=== PATIENT | male | born 1965 | race Two or more races ===

== ENCOUNTER → 2020-11-11 | Outpatient (CLI) | payer OTHER ==
[2015-02-15 11:30] VITALS: BP 136/82
[~2020-11-11] MED LIST: LOSA100T14 PO; MULT1TAB50 PO; OXYC1TAB15 PO
--- NOTE | 2020-11-11 11:49 | KCIC ---
EXAM: CT coronary artery calcium screening HISTORY: Hyperlipidemia. TECHNIQUE: Computed tomographic images of the chest were obtained without contrast. Multiplanar refor matting was performed. *One or more of the following individualized dose reduction techniques were utilized for this examina tion: 1. Automated exposure control. 2. Adjustment of the mA and/or kV according to patient size. 3. Use of iterative reconstruction technique. COMPARISON: None. FINDINGS: No incidental findings. Coronary artery calcium score: Left main artery - 0 Left anterior descending - 0 Left circumflex - 0 Right coronary artery - 0 TOTAL = 0 Coronary vascular calcium is not detected with this exam. This does not absolutely rule out the prese nce of atherosclerotic plaque, including unstable plaque, but does imply a very low likelihood of sig nificant luminal obstruction. A negative test may be consistent with a low risk of cardiovascular event in the next 2 to 5 years. IMPRESSION: Calcium score of 0. Recommendations: Healthy lifestyle choices including eating appropriately and exercise are encouraged. Additional supporting information concerning the findings and recommendation contained within this report can be found in the consensus statements on coronary vascular calcium published by the [place] [employer] and [place] [employer] 5 Conference (Circulation 1996 ; 94: 0386-3418; J Am Angi Cardiol 2000; 36: 326-340 and Circulation 2000; 101: 111-116 Electronically signed by: Luma Moise MD (11/11/2020 11:47 AM) [id number]
== END ==
LOC: KCIC CT 08:37
PROVIDERS: ATTEND Family Medicine
DX: Z13.6 Encounter for screening for cardiovascular disorders (principal); E78.2 Mixed hyperlipidemia
CPT/HCPCS: 75571

== ENCOUNTER 2021-06-15 11:32 | Emergency (ER) | payer BC, OTHER ==
[~2021-06-15] VITALS: Ht 165.1 cm; Wt 81.2 kg
[2021-06-15 12:16] LABS: BASO # 0.1 x10^3/uL (0.0-0.2); BASO % 1 % (0-3); EOS % 0 % (0-3); HEMATOCRIT 45.5 % (39.0-53.0); HEMOGLOBIN 15.6 g/dL (13.0-17.5); LYMPH # 1.3 x10^3/uL (1.0-4.8); LYMPH % 16 % (24-48); MEAN CORPUSCULAR HEMOGLOBIN 29 pg (25-35); MEAN CORPUSCULAR HGB CONC 34 g/dL (31-37); MEAN CORPUSCULAR VOLUME 85 fL (79-100); MONO # 0.5 x10^3/uL (0.0-1.1); MONO % 6 % (0-9); NEUT # 6.5 x10^3/uL (1.8-7.7); NEUT % 77 % (31-73); PLATELET COUNT 196 x10^3/uL (140-400); RED BLOOD COUNT 5.35 x10^6/uL (4.30-5.70); RED CELL DISTRIBUTION WIDTH 13.8 % (11.5-14.5); WHITE BLOOD COUNT 8.4 x10^3/uL (4.0-11.0)
[2021-06-15 12:23] LABS: CALCIUM 9.4 mg/dL (8.5-10.1); CREATININE 1.2 mg/dL (0.7-1.3); GFR 63.1; POTASSIUM 3.8 mmol/L (3.5-5.1)
[2021-06-15 12:28] LABS: BILIRUBIN,URINE NEGATIVE (NEG); CLARITY,URINE CLEAR; COLOR,URINE YELLOW; NITRITE,URINE NEGATIVE (NEG); PH,URINE 7.5 (<5.0-8.0); PROTEIN,URINE NEGATIVE (NEG-TRACE); UROBILINOGEN,URINE 0.2 mg/dL (0.2 mg/dL)
[2021-06-15 12:29] LABS: TOTAL BILIRUBIN 0.4 mg/dL (0.2-1.0)
[2021-06-15 12:48] LABS: HYALINE CASTS, URINE OCCASIONAL /HPF
[2021-06-15 12:49] LABS: BACTERIA,URINE 0 /HPF (0-FEW); RBC,URINE 20-40 /HPF (0-2)
[2021-06-15] MEDS ORDERED: IV NORMAL SALINE 1000ML BAG 1,000 ML IV ONE ×2 (13:00)
--- NOTE | 2021-06-15 14:11 | RAD ---
EXAM: Abdomen and pelvis CT without intravenous contrast. HISTORY: Right flank pain. TECHNIQUE: Computed tomographic images of the abdomen and pelvis were obtained without contrast. Mult iplanar reformatting was performed. *One or more of the following individualized dose reduction techniques were utilized for this examina tion: 1. Automated exposure control. 2. Adjustment of the mA and/or kV according to patient size. 3. Use of iterative reconstruction technique. COMPARISON: None. FINDINGS: Evaluation of the lower thorax demonstrates posterior dependent atelectasis. There is linea r atelectasis or scarring within the lingula. The heart is normal in size. There is hepatic steatosis . The gallbladder, pancreas, spleen and adrenal glands are unremarkable. There is mild right hydronephrosis secondary to an obstructing 3 mm stone within the mid right ureter . There is asymmetric right greater than left perinephric stranding likely due to obstructive uropath y. No suspicious renal lesion is seen. No additional renal stone is seen. There is no appendicitis. There is no bowel obstruction. There is no abnormal bowel wall thickening. The bladder and prostate are unremarkable. There is no lymphadenopathy. The aorta is normal in calibe r. IMPRESSION: Mild right hydronephrosis secondary to an obstructing 3 mm mid right ureteral stone. Electronically signed by: Mere Short MD (06/15/2021 2:08 PM) [facility]
[2021-06-15] MEDS ORDERED: TAMS0.4C97 PO (14:41)
[2021-06-15] MEDS ORDERED: HYDR-2761 PO ×2 (14:41→14:50)
--- NOTE | 2021-06-15 14:49 | ED.ADGEN ---
Past Medical History Past Medical History: Hypertension, Kidney Stone Past Surgical History: Other Additional Past Surgical Histo: hernia repair as an infant, renal stent and lithotripsy Smoking Status: Never Smoker Alcohol Use: Occasionally Drug Use: None General Adult EDM: Chief Complaint: FLANK PAIN HPI: HPI: Patient is a 56 year old male who presents emergency department with complaints of right flank pain that began this morning. Patient states that the pain was similar to previous kidney stone he had about 8 years ago. Patient denies any increased urinary frequency, hematuria, difficulty voiding, or pain with urination. Patient denies any back pain, nausea, vomiting, diarrhea, chest pain, shortness of breath, cough, fever, body aches, or fatigue. Patient states that the pain did shoot to his right testicle at one point but he currently denies any pain, swelling, or erythema of his testicles. Currently rates the discomfort a 1 out of 10 on the pain scale, he did not take anything for relief of the pain prior to arrival. Review of Systems: Review of Systems: Complete ROS is negative unless otherwise noted in the HPI. Current Medications: Current Medications Medications (Trade) Dose Ordered Sig/Mario Start Time Stop Time Status Last Admin Dose Admin Sodium Chloride 1,000 ml @ 1,000 mls/hr 1X ONCE 06/15/21 13:00 06/15/21 13:59 DC Allergies: Allergies: Allergies Coded Allergies Type Severity Reaction Last Updated Verified No Known Drug Allergies 02/12/15 No Physical Exam: PE: See above Constitutional: Well developed, well nourished, no acute distress, non-toxic appearance. [] HENT: Normocephalic, atraumatic, bilateral external ears normal, nose normal. [] Eyes: PERRLA, EOMI, conjunctiva normal, no discharge. [] Neck: Normal range of motion, no stridor. [] Cardiovascular:Heart rate regular rhythm, no murmur Lungs & Thorax: Respirations even and unlabored, no retractions, no respiratory distress, lungs CTA Abdomen: soft, no tenderness, no rebound tenderness, no guarding, no palpable Back: Nontender, no CVA tenderness Skin: Warm, dry, no erythema, no rash. [] Extremities: No cyanosis, ROM intact, no edema. [] Neurologic: Alert and oriented X 3, no focal deficits noted. [] Psychologic: Affect normal, judgement normal, mood normal. [] Current Patient Data: Labs: Laboratory Tests Test 06/15/21 12:10 06/15/21 12:18 White Blood Count 8.4 x10^3/uL (4.0-11.0) Red Blood Count 5.35 x10^6/uL (4.30-5.70) Hemoglobin 15.6 g/dL (13.0-17.5) Hematocrit 45.5 % (39.0-53.0) Mean Corpuscular Volume 85 fL (79-100) Mean Corpuscular Hemoglobin 29 pg (25-35) Mean Corpuscular Hemoglobin Concent 34 g/dL (31-37) Red Cell Distribution Width 13.8 % (11.5-14.5) Platelet Count 196 x10^3/uL (140-400) Neutrophils (%) (Auto) 77 % (31-73) H Lymphocytes (%) (Auto) 16 % (24-48) L Monocytes (%) (Auto) 6 % (0-9) Eosinophils (%) (Auto) 0 % (0-3) Basophils (%) (Auto) 1 % (0-3) Neutrophils # (Auto) 6.5 x10^3/uL (1.8-7.7) Lymphocytes # (Auto) 1.3 x10^3/uL (1.0-4.8) Monocytes # (Auto) 0.5 x10^3/uL (0.0-1.1) Eosinophils # (Auto) 0.0 x10^3/uL (0.0-0.7) Basophils # (Auto) 0.1 x10^3/uL (0.0-0.2) Sodium Level 141 mmol/L (136-145) Potassium Level 3.8 mmol/L (3.5-5.1) Chloride Level 102 mmol/L (98-107) Carbon Dioxide Level 28 mmol/L (21-32) Anion Gap 11 (6-14) Blood Urea Nitrogen 15 mg/dL (8-26) Creatinine 1.2 mg/dL (0.7-1.3) Estimated GFR (Cockcroft-Gault) 63.1 BUN/Creatinine Ratio 13 (6-20) Glucose Level 149 mg/dL (70-99) H Calcium Level 9.4 mg/dL (8.5-10.1) Total Bilirubin 0.4 mg/dL (0.2-1.0) Aspartate Amino Transferase (AST) 30 U/L (15-37) Alanine Aminotransferase (ALT) 58 U/L (16-63) Alkaline Phosphatase 96 U/L (46-116) Total Protein 8.0 g/dL (6.4-8.2) Albumin 4.0 g/dL (3.4-5.0) Albumin/Globulin Ratio 1.0 (1.0-1.7) Urine Collection Type Unknown Urine Color Yellow Urine Clarity Clear Urine pH 7.5 (<5.0-8.0) Urine Specific Reserve 1.010 (1.000-1.030) Urine Protein Negative mg/dL (NEG-TRACE) Urine Glucose (UA) Negative mg/dL (NEG) Urine Ketones (Stick) Negative mg/dL (NEG) Urine Blood Moderate (NEG) Urine Nitrite Negative (NEG) Urine Bilirubin Negative (NEG) Urine Urobilinogen Dipstick 0.2 mg/dL (0.2 mg/dL) Urine Leukocyte Esterase Negative (NEG) Urine RBC 20-40 /HPF (0-2) Urine WBC 1-4 /HPF (0-4) Urine Squamous Epithelial Cells Few /LPF Urine Bacteria 0 /HPF (0-FEW) Urine Hyaline Casts Occasional /HPF Urine Mucus Slight /LPF Laboratory Tests 06/15/21 12:10 Laboratory Tests 06/15/21 12:10 Vital Signs: Vital Signs Date Time Temp Pulse Resp B/P (MAP) Pulse Ox O2 Delivery O2 Flow Rate FiO2 06/15/21 15:01 85 16 143/80 (101) 98 Room Air 06/15/21 11:43 97.9 97.9 EKG: EKG: [] Heart Score: C/O Chest Pain: No Radiology/Procedures: Radiology/Procedures: PROCEDURE: CT ABDOMEN PELVIS WO CONTRAST EXAM: Abdomen and pelvis CT without intravenous contrast. HISTORY: Right flank pain. TECHNIQUE: Computed tomographic images of the abdomen and pelvis were obtained without contrast. Multiplanar reformatting was performed. *One or more of the following individualized dose reduction techniques were utilized for this examination: 1. Automated exposure control. 2. Adjustment of the mA and/or kV according to patient size. 3. Use of iterative reconstruction technique. COMPARISON: None. FINDINGS: Evaluation of the lower thorax demonstrates posterior dependent atelectasis. There is linear atelectasis or scarring within the lingula. The heart is normal in size. There is hepatic steatosis. The gallbladder, pancreas, spleen and adrenal glands are unremarkable. There is mild right hydronephrosis secondary to an obstructing 3 mm stone within the mid right ureter. There is asymmetric right greater than left perinephric stranding likely due to obstructive uropathy. No suspicious renal lesion is seen. No additional renal stone is seen. There is no appendicitis. There is no bowel obstruction. There is no abnormal bowel wall thickening. The bladder and prostate are unremarkable. There is no lymphadenopathy. The aorta is normal in caliber. IMPRESSION: Mild right hydronephrosis secondary to an obstructing 3 mm mid right ureteral stone. Electronically signed by: Mere Short MD (06/15/2021 2:08 PM) [facility] [] Course & Med Decision Making: Course & Med Decision Making Pertinent Labs and Imaging studies reviewed. (See chart for details) 56-year-old male presents emergency department with concerns of right flank pain that began this morning. Work-up included labs, imaging, and IV fluids. CBC is unremarkable; CMP revealed a glucose of 149 otherwise unremarkable; urinalysis revealed 20-40 red blood cells, not concerning for infection. CT of the patient's abdomen did reveal a 3 mm obstructive stone in the right mid ureter with mild right hydronephrosis. Patient was encouraged to follow-up with Dr. Smith for further evaluation by urology. Prescriptions written for Flomax and hydrocodone. The patient was provided with a urinal and a urine strainer to collect the stone if possible. I encouraged him to return to the ER if symptoms worsened or fever develop. Patient verbalized an understanding of home care, medications, follow-up, and return to ED instructions and was in agreement with the plan of care. [] Dragon Disclaimer: Dragon Disclaimer: This electronic medical record was generated, in whole or in part, using a voice recognition dictation system. Departure Departure Impression: Primary Impression: Kidney stone on right side Disposition: 01 HOME / SELF CARE / HOMELESS Condition: STABLE Referrals: SURYA GONZALEZ MD (PCP) SCOOTER SMITH MD Patient Instructions: Diet for Kidney Stones, Kidney Stones, [id number] Additional Instructions: Fill the prescriptions and use as directed. Increase clear fluids. Strain your urine in the strainer provided, collect the stone and take with you to your primary care doctor or urologist for further evaluation. Follow up with your primary care doctor in 1-2 days. Return to the ER if symptoms worsen or fever develops. Scripts Hydrocodone Bit/Acetaminophen (HYDROCODONE-APAP 5-325 ) 1 Tab Tablet 1 TAB PO PRN Q6HRS PRN for PAIN, #15 TAB 0 Refills Prov: TAMMI BINGHAM MD 06/15/21 Tamsulosin Hcl (FLOMAX) 0.4 Mg Cap.er.24h 1 CAP PO DAILY for 14 Days, #14 CAP 0 Refills Prov: ADRIANO VERMA APRN 06/15/21 ADRIANO VERMA APRN Jun 15, 2021 14:49
[2021-06-15 15:01] VITALS: BP 143/80
== END 2021-06-15 15:02 | disposition home or self-care (01) ==
LOC: ER 11:32
DX: N13.2 Hydronephrosis with renal and ureteral calculous obstruction (principal); I10 Essential (primary) hypertension; Z87.442 Personal history of urinary calculi
CPT/HCPCS: 36415; 74176; 80053; 81001; 85025; 96360; 99284; J7030